=== PATIENT | female | born 1980 | race Caucasian/White ===

== ENCOUNTER 2021-03-19 12:49 | Emergency (ER) | payer SELFPAY ==
[~2021-03-19] VITALS: Ht 160 cm; Wt 64.0 kg
--- NOTE | 2021-03-19 13:07 | NUR ---
cough and congestion x 7 days unvaccinated against COVID per report by choice - she has an " appoinment with her PCP"
--- NOTE | 2021-03-19 13:08 | NUR ---
no hypoxia noted - RA sats - 98 %
--- NOTE | 2021-03-19 13:33 | NUR ---
awaiting for ER provider to evaluate the patient
[2021-03-19] MEDS ORDERED: DEXA4TAB PO (15:06)
[2021-03-19] MEDS ORDERED: AZIT500T PO (15:06)
[2021-03-19] MEDS ORDERED: ALBU18HF2 INH (15:06)
--- NOTE | 2021-03-19 15:19 | NUR ---
Patient discharged to home in stable condition. Written and verbal after care instructions given. Patient verbalizes understanding of instruction.
[2021-03-19 15:20] VITALS: BP 126/84
== END 2021-03-19 15:20 | disposition home or self-care (01) ==
LOC: ER 12:56
DX: U07.1 COVID-19 (principal)